=== PATIENT | female | born 1980 | race Caucasian/White ===

== ENCOUNTER 2016-12-21 14:36 | Outpatient (CLI) | payer MEDICAID | END 2016-12-21 19:49 | disposition home or self-care (01) | LOC: MRD 14:36 | PROVIDERS: ATTEND Obstetrics & Gynecology | PROC: BU46ZZZ Ultrasonography of Uterus (ICD-10-PCS; principal; 2016-12-21) | DX: O20.9 Hemorrhage in early pregnancy, unspecified (principal); O09.521 Supervision of elderly multigravida, first trimester; Z3A.01 Less than 8 weeks gestation of pregnancy | CPT/HCPCS: 76817 ==